=== PATIENT | female | born 1985 | race Caucasian/White ===

== ENCOUNTER 2016-08-05 20:18 | Emergency (ER) | payer MEDICAID, OTHER ==
[2016-08-05] MEDS ORDERED: OPTIRAY 350 100 ML VIAL HMH IV ONE (20:19)
[2016-08-05] MEDS ORDERED: FAMOTIDINE 20 MG INJ ONE (22:34)
[2016-08-05] MEDS ORDERED: SODIUM CHLORIDE 0.9% 1,000 ML ONE ×2 (22:34→22:49)
[2016-08-05] MEDS ORDERED: ONDANSETRON 4 MG VIAL ONE ×2 (22:34→23:56)
[2016-08-05] MEDS ORDERED: DILAUDID 1 MG/ML AMP ONE (23:56)
[2016-08-06] MEDS ORDERED: PROMETHAZINE 25 MG/ML VIAL ONE (01:18)
[2016-08-06] MEDS ORDERED: SODIUM CHLORIDE 0.9% 1,000 ML ONE (02:32)
[2016-08-06] MEDS ORDERED: DICYCLOMINE 10 MG CAP ONE (04:07)
== END 2016-08-06 04:13 | disposition home or self-care (01) ==
LOC: ER 20:18
DX: K29.70 Gastritis, unspecified, without bleeding (principal); R10.13 Epigastric pain; Z79.899 Other long term (current) drug therapy; F17.210 Nicotine dependence, cigarettes, uncomplicated
CPT/HCPCS: 36415; 74177; 80053; 81001; 82553; 83690; 84484; 84703; 85025; 86677; 93005; 96361; 96365; 96375